=== PATIENT | male | born 1960 | race Caucasian/White ===

== ENCOUNTER → 2016-12-02 | Outpatient (CLI) | payer OTHER ==
--- NOTE | 2016-12-02 19:43 | DX ---
PA and Lateral Chest on December 02, 2016 Indication: CHEST PAIN. Comparison: Two-view chest dated August 24, 2009. Findings: Left basilar airspace consolidation has completely resolved since 2008. The lungs are well aerated and clear. The heart size is normal. No pneumothorax, edema, consolidation or effusion. Impression: Clear lungs. No explanation for pain.
== END ==
LOC: CIMAGING 10:23
PROVIDERS: ATTEND Family Medicine
DX: R07.9 Chest pain, unspecified (principal)
CPT/HCPCS: 71020-PO